=== PATIENT | male | born 1955 | race Caucasian/White ===

== ENCOUNTER 2017-06-23 10:30 | Outpatient (CLI) | payer OTHER ==
[2017-06-23 12:04] LABS: #Lymphocytes 1.2 thou/uL (1.20-3.40); #Monocytes 0.3 thou/uL (0.11-0.59); #Neutrophils 3.2 thou/uL (1.40-6.50); %Basophils 0.5 % (0.0-1.0); %Eosinophils 0.8 % (0.0-10.0); %Lymphocytes 25.1 % (21.0-51.0); %Monocytes 6.1 % (0.0-10.0); Hematocrit 44.1 % (42.0-52.0); Mean Platelet Volume 9.5 fL (7.4-10.4); Red Blood Cell (RBC) Count 4.67 mill/uL (4.70-6.10); White Blood Cell (WBC) Count 4.7 thou/uL (4.8-10.8)
[2017-06-23 12:29] LABS: Anion Gap 12 mmol/L (10-20); BUN (Urea Nitrogen) 16 mg/dL (8.4-25.7); Calc. Creatinine Clearance 0 mL/min (70-130); Calcium 9.3 mg/dL (7.8-10.44); Carbon Dioxide 27 mmol/L (23-31); Chloride 104 mmol/L (98-107); Estimated GFR-MDRD 86
--- NOTE | 2017-06-24 06:17 | EKG ---
Test Reason : PREOP Blood Pressure : / mmHG Vent. Rate : 052 BPM Atrial Rate : 052 BPM P-R Int : 170 ms QRS Dur : 090 ms QT Int : 442 ms P-R-T Axes : 075 060 059 degrees QTc Int : 411 ms Sinus bradycardia Otherwise normal ECG When compared with ECG of 23-NOV-2012 09:51, No significant change was found Confirmed by LALO MCKAY ([id number]) on 06/24/2017 6:16:36 AM Referred By: JOSE Confirmed By:LALO MCKAY
== END 2017-06-23 10:31 | disposition home or self-care (01) ==
LOC: LABBT 10:30
PROVIDERS: ATTEND Surgery
DX: Z01.818 Encounter for other preprocedural examination (principal); K40.90 Unilateral inguinal hernia, without obstruction or gangrene, not specified as recurrent; K42.9 Umbilical hernia without obstruction or gangrene
CPT/HCPCS: 80048; 85025; 93005; 93010

== ENCOUNTER 2017-07-01 09:45 | Day surgery (SDC) | payer OTHER ==
[2017-06-23 11:02] VITALS: BMI 24.7
[2017-07-01] MEDS ORDERED: Bupivacaine/Epinephrine 0.25% 30 ML VIAL ONE (11:00)
[2017-07-01] MEDS ORDERED: Fentanyl 100 MCG/2 ML VIAL ONE ×4 (11:01→14:22)
[2017-07-01] MEDS ORDERED: Ketorolac Tromethamine 30 MG/ML VIAL ONE (11:25)
[2017-07-01] MEDS ORDERED: Ondansetron HCl/PF 4 MG/2 ML Vial ONE (11:25)
[2017-07-01] MEDS ORDERED: Propofol 200 MG/20 ML VIAL ONE (11:25)
[2017-07-01] MEDS ORDERED: Lidocaine 1% PF 5 ML VIAL ONE (11:25)
[2017-07-01] MEDS ORDERED: Glycopyrrolate 0.2 MG/ML 5 ML SYRINGE ONE (11:25)
[2017-07-01] MEDS ORDERED: Dexamethasone 20 MG/5 ML VIAL ONE (11:25)
[2017-07-01] MEDS ORDERED: PHENYLEPHRINE-NS 100 MCG/ML 10 ML SYRINGE ONE (11:25)
--- NOTE | 2017-07-01 14:25 | OP ---
DATE OF PROCEDURE: 07/01/2017 PREOPERATIVE DIAGNOSES: Bilateral inguinal hernia, umbilical hernia. POSTOPERATIVE DIAGNOSES: Bilateral inguinal hernia, umbilical hernia. PROCEDURE: Laparoscopic da Carline bilateral inguinal hernia repair with mesh, 3DMax, large on the le ft, extra large on the right, umbilical hernia repair with mesh, open Ventralex ST 6 cm. SURGEON: Dr. Humberto Jang ANESTHESIA: General. ESTIMATED BLOOD LOSS: Minimal. COMPLICATIONS: None. FINDINGS: Bilateral inguinal hernia and umbilical hernia. TECHNIQUE: The patient was taken to the operating room and placed supine on the table. After gener al anesthetic was obtained, a Guerrero was placed. The abdomen was shaved, and draped in a sterile fas hion. He was placed in Trendelenburg position. Curved incision made above the umbilicus. Cautery was used to dissect down to and score the fascia at the umbilical hernia. The abdominal cavity was entered using a Vilma clamp followed by a 12-mm trocar. High-flow pneumoperitoneum was obtained. L eft and right abdominal 8 mm robot trocars were placed. All ports were docked to the robot. Surgeo n goes to the console. Peritoneum was opened on the right and left side proximal to the groins. Di ssection was taken down to the pubic tubercle medially bilaterally and anterior iliac crest laterall y. The preperitoneal space was fully developed, the direct, indirect and femoral components were al l exposed in the bilateral groin. There was bilateral indirect inguinal hernias, we resected out of the hernia at an indirect hernia defect high up onto the peritoneum. Cord structures were skeleton ized bilaterally. Left 3DMax large mesh placed with an inlay medial aspect placed over pubic tuberc le and the right was an extra large piece of mesh. They fully covered the femoral, indirect and dir ect areas. The mesh was bilaterally sewn via Vicryl suture to the pubic tubercle, medially and to t he posterior fascia lateral to the inferior epigastric vessels. No sutures were placed in the trian gle of pain. The peritoneum was reapproximated on the right and left using Stratafix. There was a large defect secondary to a thin peritoneum that was residual on the right and so the round ligament was able to be pulled over and patch over the top of this using Vicryl suture. All port sites were infiltrated using local anesthetic. All ports were removed under direct visualization without blee ding. The umbilical stalk was then amputated exposing the umbilical defect. The edges of the defec t were freshened. Ventralex ST medium 6 cm mesh brought into the sterile field. The underlay was p laced in the abdominal cavity and pulled up flat against the posterior abdominal wall. The mesh is sewn via U stitch of permanent braided suture at the edges of the mesh laterally, superiorly, and in feriorly. The wound was irrigated. Local anesthetic was applied. The umbilical skin was tacked ba ck down using 3-0 Vicryl. Skin was closed using 3-0 Vicryl, 4-0 Monocryl, and Dermabond. The patie nt went to recovery in stable condition. All instrument counts, needle counts, and lap counts were correct.
== END 2017-07-01 17:38 | disposition home or self-care (01) ==
LOC: SDC 09:45
PROVIDERS: ATTEND Surgery
PROC: 0YUA4JZ Supplement Bilateral Inguinal Region with Synthetic Substitute, Percutaneous Endoscopic Approach (ICD-10-PCS; principal; 2017-07-01)
PROC: 8E0W4CZ Robotic Assisted Procedure of Trunk Region, Percutaneous Endoscopic Approach (ICD-10-PCS; principal; 2017-07-01)
PROC: 0WUF4JZ Supplement Abdominal Wall with Synthetic Substitute, Percutaneous Endoscopic Approach (ICD-10-PCS; principal; 2017-07-01)
DX: K40.20 Bilateral inguinal hernia, without obstruction or gangrene, not specified as recurrent (principal); K42.9 Umbilical hernia without obstruction or gangrene; H91.90 Unspecified hearing loss, unspecified ear; N40.0 Benign prostatic hyperplasia without lower urinary tract symptoms; M19.90 Unspecified osteoarthritis, unspecified site; Z79.82 Long term (current) use of aspirin; Z79.899 Other long term (current) drug therapy; Z90.89 Acquired absence of other organs; Z98.890 Other specified postprocedural states
CPT/HCPCS: 96374; C1781; J0131; J1100; J1885; J2001; J2405; J2704; J3010

== ENCOUNTER 2020-12-23 12:44 | Outpatient (CLI) | payer MEDICARE | END 2020-12-23 12:45 | disposition home or self-care (01) | LOC: TBSIIMAG 12:44 | PROVIDERS: ATTEND Orthopaedic Surgery | DX: M25.562 Pain in left knee (principal); S83.242A Other tear of medial meniscus, current injury, left knee, initial encounter; M22.42 Chondromalacia patellae, left knee; R60.0 Localized edema ==